=== PATIENT | female | born 1980 | race Caucasian/White ===

== ENCOUNTER 2021-05-14 00:35 | Emergency (ER) | payer OTHER ==
[2021-05-14 01:25] LABS: BASOPHIL 0.3 % (0-2); EOSINOPHIL 1.8 % (0-5); HCT 39.9 % (37.0-47.0); HGB 13.3 g/dl (12.5-16.0); LYMPHOCYTE 14.3 % (15-48); MCH 30.4 pg (25.0-31.0); MCHC 33.3 g/dL (32.0-36.0); MCV 91.1 fL (78.0-100.0); MONOCYTE 6.7 % (0-12); NEUTROPHIL 76.3 % (41-80); NRBC 0; PLT 276 K/uL (150-400); RBC 4.38 M/uL (4.20-5.40); RDW 12.8 % (11.5-14.0); WBC 13.7 K/uL (4.0-10.5)
[2021-05-14 01:36] LABS: BUN/CREAT RATIO (CALC) 17.6 RATIO; CREATININE 0.91 mg/dL (0.51-0.95); POTASSIUM 3.7 mmol/L (3.5-5.1)
[2021-05-14 01:58] LABS: BILIRUBIN NEGATIVE (NEGATIVE); BLOOD 3+ Ery/uL (NEGATIVE); CLARITY CLEAR (CLEAR); COLOR YELLOW (YELLOW); GLUCOSE (U) NORMAL (NORMAL); LEUKOCYTES NEGATIVE Leu/uL (NEGATIVE); NITRITE POSITIVE (NEGATIVE); PROTEIN NEGATIVE (NEGATIVE); SPECIFIC GRAVITY 1.025 (1.001-1.030); UROBILINOGEN 0.2 mg/dL (0.2-1.0)
[2021-05-14 02:07] LABS: BACTERIA 4+; URINARY RBC 20-50
[2021-05-14] MEDS ORDERED: FLEET ENEMA EX230 ML PR (03:57)
[2021-05-14] MEDS ORDERED: PERCOCET 5-3251 EACH PO (03:57)
[2021-05-14] MEDS ORDERED: MIRALAX 238GM238 GM PO (03:57)
[2021-05-14] MEDS ORDERED: PYRIDIUM200 MG PO (03:57)
[2021-05-14] MEDS ORDERED: DIFLUCAN150 MG PO (03:57)
[2021-05-14] MEDS ORDERED: BACTRIM DS TAB1 EACH PO (03:57)
[2021-05-16 20:11] LABS: CHLAMYDIA TRACHOMATIS, NAA Negative (Negative); NEISSERIA GONORRHOEAE, NAA Positive (Negative)
== END 2021-05-14 04:15 | disposition home or self-care (01) ==
LOC: FER 00:35
PROVIDERS: Emergency Medicine Emergency Medical Services
DX: K59.00 Constipation, unspecified (principal); N12 Tubulo-interstitial nephritis, not specified as acute or chronic; F17.200 Nicotine dependence, unspecified, uncomplicated; Z88.5 Allergy status to narcotic agent
CPT/HCPCS: 36415; 80048; 81001; 85025; 87076; 87088; 87186; 87210; 87491; 87591; J0696; J1170; J1885; J2405; Q9967